=== PATIENT | male | born 1985 | race Two or more races ===

== ENCOUNTER 2018-03-14 07:28 | Emergency (ER) | payer OTHER ==
[~2018-03-14] VITALS: Ht 172.7 cm; Wt 56.7 kg
--- NOTE | 2018-03-14 07:43 | EKG ---
[address] [address] Test Date: 2018-03-14 Test Time: 07:41:43 Pat Name: MAYO CRUZ Department: Room: Gender: M Mail Distribution Clerk: : 1985 Requested By: RADHA ARAMBULA Order Number: [id number] Reading MD: Joseph Bowser MD Measurements Intervals [place] Rate: 70 P: 65 DC: 172 QRS: 80 QRSD: 84 T: 52 QT: 394 QTc: 428 Interpretive Statements SINUS RHYTHM Electronically Signed On 03-22-2018 10:57:58 CDT by Joseph Bowser MD
[2018-03-14] MEDS ORDERED: IV RINGERS SOLUTION,LACTATED 1,000 ML IV ONE (07:45)
--- NOTE | 2018-03-14 07:46 | PHYS DOC ---
Past History Additional Past Medical Histor: Frequent "hunger strikes" and "mental illness" Past Medical History Unable to obtain due to altered mental status Past Surgical History Unable to obtain due to altered mental status Social History Unable to obtain due to altered mental status Adult General Chief Complaint Chief Complaint: ALTERED MENTAL STATUS HPI HPI Patient is a 32-year-old male who presents to the emergency department after being transported from the local correctional facility by EMS. They state that they were told that he has been on a hunger strike for the past several days. According to EMS, patient was in solitary confinement when he pushed the alert button and when officers responded he was found laying on the ground and would not respond to them verbally or physically. According to EMS, on arrival he had stable vital signs but was non-cooperative and not responding to commands. Patient has a history of similar episodes while at the facility. Staff reports he is "afraid" of being put in general population. No history of access to drugs or alcohol. EMS reports blood glucose upon arrival 74. HPI limited to patient's current uncooperative/altered mental status. Review of Systems Review of Systems Unable to obtain due to patient non-cooperation and AMS Current Medications Current Medications Current Medications Medications (Trade) Dose Ordered Sig/Klaudia Start Time Stop Time Status Last Admin Dose Admin Lactated Ringer's 1,000 ml @ 1,000 mls/hr 1X ONCE 03/14/18 07:45 03/14/18 08:44 UNV Physical Exam Physical Exam Constitutional: Well developed, well nourished, no acute distress, non-toxic appearance. [] HENT: Normocephalic, atraumatic, oropharynx moist Eyes: PERRL, conjunctiva clear, Cardiovascular: Heart rate regular rhythm, no murmur [] Lungs & Thorax: Bilateral breath sounds clear to auscultation [] Abdomen: Soft, no tenderness, no pulsatile masses. [] Skin: Warm, dry, no erythema, no rash. [] Extremities: No cyanosis, no clubbing, no edema. [] Neurological: Patient with eyes closed and will not respond to verbal stimuli, Patient appears to be purposely trying not to respond to noxious stimuli. Current Patient Data Lab Results Laboratory Tests Test 03/14/18 07:30 Glucose (Fingerstick) 73 mg/dL (70-99) EKG EKG NSR at 70bpm, NO ST elevation, QRS 84ms, QT/QTc 394/428ms Radiology/Procedures Radiology/Procedures PROCEDURE: CT HEAD WO CONTRAST CT of the head without contrast, 03/14/2018: HISTORY: Mental status change The ventricles are within normal limits in size. There is no shift of the midline structures. There is no evidence of acute intracranial hemorrhage or mass effect. IMPRESSION: No acute intracranial abnormality is detected. PROCEDURE: PORTABLE CHEST 1V Portable chest, 03/14/2018: HISTORY: Mental status change The heart size is normal. The lungs are clear. There is no evidence of pleural fluid. IMPRESSION: No acute cardiopulmonary abnormality is detected. Course & Med Decision Making Course & Med Decision Making Pertinent Labs and Imaging studies reviewed. (See chart for details) Patient is a 32-year-old male inmate who presents to the emergency department after being transported by EMS from the local correctional facility after having been on a "hunger strike" for the past several days. Patient will not respond to verbal stimuli but does appear to respond somewhat to noxious stimuli. Patient appears to be purposely less responsive. History that patient pushed a button to notify facility personnel and then was found on the floor not responsive. Concern given history for starvation ketosis. Labs obtained and posted to chart. Anion gap slightly elevated. Lactic acid within normal limits. Electrolytes also within normal limits. Urine drug screen, alcohol, Tylenol, and salicylates without acute process. UA with signs of ketosis. ABG obtained. PH 7.334. Acetone slightly positive. Patient was given 1 L of LR, 1 L banana bag and normal saline, and D5 half normal saline. CT head without acute process. Chest x-ray clear. Patient still less responsive but was instructed that he would be returning to correctional facility. Guards discussed that they would do what would be necessary to get patient back to the facility. Upon this verbalization patient was able to purposely get up out of the gurney, walk several steps, and then get into and into a wheelchair without any assistance. Dragon Disclaimer Dragon Disclaimer This electronic medical record was generated, in whole or in part, using a voice recognition dictation system. Departure Departure: Impression: Primary Impression: Uncooperative behavior Additional Impressions: History of incarceration History of starvation Ketosis Disposition: XFER OTHER (To Correctional Facility) Condition: RELEASED IN CUSTODY Referrals: PCP,NO (PCP) Patient Instructions: Eating Disorders, Self-Destructive Behavior Problem Qualifiers RADHA ARAMBULA DO Mar 14, 2018 07:46
[2018-03-14 07:52] LABS: BASO % 1 % (0-3); EOS # 0.1 x10^3/uL (0.0-0.7); EOS % 1 % (0-3); HEMATOCRIT 41.2 % (39.0-53.0); HEMOGLOBIN 14.3 g/dL (13.0-17.5); LYMPH % 43 % (24-48); MEAN CORPUSCULAR HEMOGLOBIN 31 pg (25-35); MEAN CORPUSCULAR HGB CONC 35 g/dL (31-37); MEAN CORPUSCULAR VOLUME 88 fL (79-100); MONO # 0.3 x10^3/uL (0.0-1.1); MONO % 7 % (0-9); NEUT # 2.2 x10^3uL (1.8-7.7); NEUT % 49 % (31-73); PLATELET COUNT 193 x10^3/uL (140-400); RED BLOOD COUNT 4.67 x10^6/uL (4.30-5.70); RED CELL DISTRIBUTION WIDTH 13.3 % (11.5-14.5); WHITE BLOOD COUNT 4.6 x10^3/uL (4.0-11.0)
[2018-03-14] MEDS ORDERED: MVI, ADULT NO.4 WITH VIT K 10 ML, FOLIC ACID SYRINGE for ER 1 MG, THIAMINE 100 MG in IV... IV ONE ×4 (08:00)
[2018-03-14 08:03] LABS: SALIC 1.8 mg/dL (2.8-20.0)
[2018-03-14 08:04] LABS: ACETAMIN < 2.0 mcg/mL (10-30); ETHANOL < 10 mg/dL (0-10)
[2018-03-14 08:33] LABS: ALBUMIN 4.5 g/dL (3.4-5.0); ALBUMIN/GLOBULIN RATIO 1.6 (1.0-1.7); CALCIUM 9.5 mg/dL (8.5-10.1); GFR 87.7; POTASSIUM 3.7 mmol/L (3.5-5.1); TOTAL BILIRUBIN 1.1 mg/dL (0.2-1.0); TOTAL PROTEIN 7.4 g/dL (6.4-8.2)
--- NOTE | 2018-03-14 08:48 | RAD ---
CT of the head without contrast, 03/14/2018: HISTORY: Mental status change The ventricles are within normal limits in size. There is no shift of the midline structures. There is no evidence of acute intracranial hemorrhage or mass effect. IMPRESSION: No acute intracranial abnormality is detected. Electronically signed by: Manuel Parra MD (03/14/2018 8:45 AM) [facility]
--- NOTE | 2018-03-14 08:50 | RAD ---
Portable chest, 03/14/2018: HISTORY: Mental status change The heart size is normal. The lungs are clear. There is no evidence of pleural fluid. IMPRESSION: No acute cardiopulmonary abnormality is detected. Electronically signed by: Manuel Parra MD (03/14/2018 8:46 AM) [facility]
[2018-03-14 09:50] LABS: AMPHETAMINE/METHAMPHETAMINE NEG (NEG); BARBITURATES NEG (NEG); BENZODIAZEPINES NEG (NEG); CANNABINOIDS NEG (NEG); COCAINE NEG (NEG); METHADONE NEG (NEG); OPIATES NEG (NEG); PHENCYCLIDINE NEG (NEG)
[2018-03-14 09:55] LABS: BILIRUBIN,URINE NEG (NEG); CLARITY,URINE HAZY; COLOR,URINE YELLOW; GLUCOSE,URINE NEG (NEG)
[2018-03-14 09:56] LABS: BACTERIA,URINE FEW /HPF (0-FEW); GRANULAR CASTS,URINE OCC /HPF; HYALINE CASTS, URINE OCC /HPF; NITRITE,URINE NEG (NEG); RBC,URINE >40 /HPF (0-2); SQUAMOUS EPITHELIAL CELL,UR FEW /LPF; UROBILINOGEN,URINE 0.2 mg/dL (0.2 mg/dL)
[2018-03-14] MEDS ORDERED: IV DEXTROSE 5 %-0.45 % NACL 1,000 ML IV ONE (10:30)
[2018-03-14] MEDS ORDERED: AZITHROMYCIN 250 MG TABLET. PO ONE (10:45)
[2018-03-14] MEDS ORDERED: cefTRIAXone IM 250 MG VIAL IM ONE (10:45)
[2018-03-14 10:46] VITALS: BP 101/58
[2018-03-14 14:03] LABS: BGAS PH 7.33 (7.35-7.46)
== END 2018-03-14 11:18 | disposition short-term general hospital (02) ==
LOC: ER 07:28
DX: R46.89 Other symptoms and signs involving appearance and behavior (principal); E88.89 Other specified metabolic disorders
CPT/HCPCS: 36415; 36600; 70450; 71045; 80053; 80307; 81001; 82010; 82140; 82553; 82803; 82947; 83605; 83735; 84484; 85025; 85610; 85730; 93005; 96361; 96365; 96367; G0480; G6039; J7120; 82003; 99285-25; G0479; J7030